=== PATIENT | male | born 1945 | race Caucasian/White ===

== ENCOUNTER 2018-01-19 17:32 | Emergency (ER) | payer MEDICARE ==
[~2018-01-19] VITALS: Ht 172.7 cm; Wt 68.2 kg
[~2018-01-19 17:32] MED LIST: ACET325T26 PO; ASPI-515 PO; ATOR20TA9 PO; CYAN500L4 PO; FOLI-17 PO; IBUP-1222 PO; LEVO500T47 PO; LIDO700A30 TD; LISI5TAB7 PO; METO25TA35 PO; NICO-487 TD; THIA100T10 PO
[2018-01-19] MEDS ORDERED: PLEASE ENTER HEIGHT AND WEIGHT MC SCH (17:48)
[2018-01-19] MEDS ORDERED: HYDROcodone/APAP 5/325 TABLET PO ONE (18:00)
[2018-01-19] MEDS ORDERED: HYDROcodone/APAP 5/325 TABLET ONE (18:07)
[2018-01-19 20:26] VITALS: BP 148/77
== END 2018-01-19 20:30 | disposition home or self-care (01) ==
LOC: ED 20:00
DX: S63.522A Sprain of radiocarpal joint of left wrist, initial encounter (principal); S63.512A Sprain of carpal joint of left wrist, initial encounter; W06.XXXA Fall from bed, initial encounter; Y93.89 Activity, other specified; Y92.098 Other place in other non-institutional residence as the place of occurrence of the external cause; Y99.8 Other external cause status
CPT/HCPCS: 29125; 99284